=== PATIENT | female | born 1975 | race Caucasian/White ===

== ENCOUNTER → 2017-03-08 | Outpatient (CLI) | payer BC ==
--- NOTE | 2017-03-08 14:32 | MM ---
Reason for exam: screening (asymptomatic). Last mammogram was performed 1 year and 1 month ago. History: Family history of breast cancer in maternal aunt at age 72. Benign US biopsy breast VAD RT of the right breast, July 29, 2015. Benign US biopsy breast add'l VAD RT of the right breast, July 29, 2015. Benign US biopsy breast add'l VAD RT of the right breast, July 29, 2015. Physical Findings: A clinical breast exam by your physician is recommended on an annual basis and results should be correlated with mammographic findings. MG 3D Screening Mammo W/Cad Bilateral CC and MLO view(s) were taken. Prior study comparison: February 18, 2016, bilateral MG diagnostic mammo w CAD [facility]. July 29, 2015, right breast MG diagnostic mammo RT wo CAD. The breast tissue is heterogeneously dense. This may lower the sensitivity of mammography. There is no discrete abnormality. No significant changes when compared with prior studies. ASSESSMENT: Negative, BI-RAD 1 RECOMMENDATION: Routine screening mammogram of both breasts in 1 year.
== END | disposition home or self-care (01) ==
LOC: RADMAMWWP 07:05
PROVIDERS: ATTEND Obstetrics & Gynecology
DX: Z12.31 Encounter for screening mammogram for malignant neoplasm of breast (principal)
CPT/HCPCS: 77063; G0202

== ENCOUNTER → 2018-04-10 | Outpatient (CLI) | payer BC ==
--- NOTE | 2018-04-11 12:27 | MM ---
Reason for exam: screening (asymptomatic). Last mammogram was performed 1 year and 1 month ago. History: Family history of breast cancer in maternal aunt at age 72. Benign US biopsy breast VAD RT of the right breast, July 29, 2015. Benign US biopsy breast add'l VAD RT of the right breast, July 29, 2015. Benign US biopsy breast add'l VAD RT of the right breast, July 29, 2015. Physical Findings: A clinical breast exam by your physician is recommended on an annual basis and results should be correlated with mammographic findings. MG 3D Screening Mammo W/Cad Bilateral CC and MLO view(s) were taken. Prior study comparison: March 08, 2017, bilateral MG 3d screening mammo w/cad. February 18, 2016, bilateral MG diagnostic mammo w CAD [facility]. The breast tissue is heterogeneously dense. This may lower the sensitivity of mammography. There is chronic nodularity bilaterally. There is no dominant lesion. ASSESSMENT: Benign, BI-RAD 2 RECOMMENDATION: Routine screening mammogram of both breasts in 1 year.
== END | disposition home or self-care (01) ==
LOC: RADMAMWWP 07:11
PROVIDERS: ATTEND Obstetrics & Gynecology
DX: Z12.31 Encounter for screening mammogram for malignant neoplasm of breast (principal)
CPT/HCPCS: 77063; 77067

== ENCOUNTER → 2019-04-17 | Outpatient (CLI) | payer BC ==
--- NOTE | 2019-04-18 14:08 | MM ---
Reason for exam: screening (asymptomatic). Last mammogram was performed 1 year ago. History: Family history of breast cancer in maternal aunt at age 72. Benign US biopsy breast VAD RT of the right breast, July 29, 2015. Benign US biopsy breast add'l VAD RT of the right breast, July 29, 2015. Benign US biopsy breast add'l VAD RT of the right breast, July 29, 2015. Physical Findings: A clinical breast exam by your physician is recommended on an annual basis and results should be correlated with mammographic findings. MG 3D Screening Mammo W/Cad Bilateral CC and MLO view(s) were taken. Prior study comparison: April 10, 2018, bilateral MG 3d screening mammo w/cad. March 08, 2017, bilateral MG 3d screening mammo w/cad. The breast tissue is heterogeneously dense. This may lower the sensitivity of mammography. No suspicious abnormality on the left breast. Right superior asymmetry at posterior depth. Multiple right biopsy markers noted. ASSESSMENT: Incomplete: need additional imaging evaluation, BI-RAD 0 RECOMMENDATION: Special view mammogram of the right breast. If lesion persists on supplemental views, image directed ultrasound is recommended. [facility] will attempt to contact patient to return for supplemental views and ultrasound if indicated.
== END | disposition home or self-care (01) ==
LOC: RADMAMWWP 06:52
PROVIDERS: ATTEND Family Medicine
DX: Z12.31 Encounter for screening mammogram for malignant neoplasm of breast (principal)
CPT/HCPCS: 77063; 77067

== ENCOUNTER → 2019-04-29 | Outpatient (CLI) | payer BC ==
--- NOTE | 2019-04-30 08:57 | MM ---
Reason for exam: additional evaluation requested from abnormal screening. Last mammogram was performed less than 1 month ago. History: Family history of breast cancer in maternal aunt at age 72. Benign US biopsy breast VAD RT of the right breast, July 29, 2015. Benign US biopsy breast add'l VAD RT of the right breast, July 29, 2015. Benign US biopsy breast add'l VAD RT of the right breast, July 29, 2015. Physical Findings: Nurse did not find any significant physical abnormalities on exam. MG 3D Work Up W/Cad RT Spot compression CC, spot compression MLO, and LM view(s) were taken of the right breast. Prior study comparison: April 17, 2019, bilateral MG 3d screening mammo w/cad. April 10, 2018, bilateral MG 3d screening mammo w/cad. The breast tissue is heterogeneously dense. This may lower the sensitivity of mammography. Previous mammotome biopsy in the right breast x 3. The posterior superior asymmetric density disperses on additional views. These results were verbally communicated with the patient and result sheet given to the patient on 04/29/19. ASSESSMENT: Negative, BI-RAD 1 RECOMMENDATION: Return to routine screening mammogram schedule for both breasts.
== END | disposition home or self-care (01) ==
LOC: RADMAMWWP 14:58
PROVIDERS: ATTEND Family Medicine
DX: R92.8 Other abnormal and inconclusive findings on diagnostic imaging of breast (principal)
CPT/HCPCS: 77061; 77065

== ENCOUNTER → 2020-05-08 | Outpatient (CLI) | payer BC ==
--- NOTE | 2020-05-11 10:38 | MM ---
Reason for exam: screening (asymptomatic). Last mammogram was performed 1 year ago. History: Family history of breast cancer in maternal aunt at age 72. Benign US biopsy breast VAD RT of the right breast, July 29, 2015. Benign US biopsy breast add'l VAD RT of the right breast, July 29, 2015. Benign US biopsy breast add'l VAD RT of the right breast, July 29, 2015. Physical Findings: A clinical breast exam by your physician is recommended on an annual basis and results should be correlated with mammographic findings. MG 3D Screening Mammo W/Cad Bilateral CC and MLO view(s) were taken. Prior study comparison: April 29, 2019, right breast MG 3d work up w/cad RT. April 17, 2019, bilateral MG 3d screening mammo w/cad. The breast tissue is heterogeneously dense. This may lower the sensitivity of mammography. Previous mammotome biopsy in the right breast x 3. There is no discrete abnormality. ASSESSMENT: Negative, BI-RAD 1 RECOMMENDATION: Routine screening mammogram of both breasts in 1 year.
== END | disposition home or self-care (01) ==
LOC: RADMAMWWP 07:09
PROVIDERS: ATTEND Obstetrics & Gynecology
DX: Z12.31 Encounter for screening mammogram for malignant neoplasm of breast (principal)
CPT/HCPCS: 77063; 77067

== ENCOUNTER → 2021-05-17 | Outpatient (CLI) | payer BC ==
--- NOTE | 2021-05-17 13:54 | MM ---
Reason for exam: screening (asymptomatic). Last mammogram was performed 1 year ago. History: Family history of breast cancer in maternal aunt at age 72. Benign US biopsy breast VAD RT of the right breast, July 29, 2015. Benign US biopsy breast add'l VAD RT of the right breast, July 29, 2015. Benign US biopsy breast add'l VAD RT of the right breast, July 29, 2015. Physical Findings: A clinical breast exam by your physician is recommended on an annual basis and results should be correlated with mammographic findings. MG 3D Screening Mammo W/Cad Bilateral CC and MLO view(s) were taken. Prior study comparison: May 08, 2020, bilateral MG 3d screening mammo w/cad. April 17, 2019, bilateral MG 3d screening mammo w/cad. The breast tissue is heterogeneously dense. This may lower the sensitivity of mammography. Finding: There are indeterminate regional calcifications in the upper outer quadrant of the left breast. Previous mammotome biopsy in the right breast x 3. New finding and increase in number of calcifications since May 08, 2020 and April 17, 2019. ASSESSMENT: Incomplete: need additional imaging evaluation, BI-RAD 0 RECOMMENDATION: Special view mammogram of the left breast. [facility] will attempt to contact patient to return for supplemental views.
== END | disposition home or self-care (01) ==
LOC: RADMAMWWP 07:18
PROVIDERS: ATTEND Family Medicine
DX: Z12.31 Encounter for screening mammogram for malignant neoplasm of breast (principal); Z80.3 Family history of malignant neoplasm of breast
CPT/HCPCS: 77063; 77067

== ENCOUNTER → 2021-05-19 | Outpatient (CLI) | payer BC ==
--- NOTE | 2021-05-20 11:45 | MM ---
Reason for exam: additional evaluation requested from abnormal screening. Last mammogram was performed less than 1 month ago. History: Family history of breast cancer in sister at age 64 and breast cancer in maternal aunt at age 72. Benign US biopsy breast VAD RT of the right breast, July 29, 2015. Benign US biopsy breast add'l VAD RT of the right breast, July 29, 2015. Benign US biopsy breast add'l VAD RT of the right breast, July 29, 2015. Physical Findings: Nurse did not find any significant physical abnormalities on exam. MG 3D Work Up W/Cad LT CC with magnification, LM with magnification, and LM view(s) were taken of the left breast. Prior study comparison: May 17, 2021, bilateral MG 3d screening mammo w/cad. The breast tissue is heterogeneously dense. This may lower the sensitivity of mammography. Finding: There are intermediate concern, suspicious, fine, grouped/clustered calcifications in the upper outer quadrant, middle position of the left breast 5cm from the nipple. New finding since May 17, 2021. These results were verbally communicated with the patient and result sheet given to the patient on 05/19/21. ASSESSMENT: Suspicious, BI-RAD 4 RECOMMENDATION: Stereotactic core biopsy of the left breast. Called Dr. Croft's office with mammographic findings and has scheduled an appointment for the patient for 06/24/21 at 10:[address] Finn. Biopsy scheduled for 07/01/21 at 8:00. PRELIMINARY REPORT CALLED AND FAXED TO DR. FINN ON 05/20/21.
== END | disposition home or self-care (01) ==
LOC: RADMAMWWP 07:02
PROVIDERS: ATTEND Family Medicine
DX: R92.1 Mammographic calcification found on diagnostic imaging of breast (principal); Z80.3 Family history of malignant neoplasm of breast
CPT/HCPCS: 77061; 77065

== ENCOUNTER 2021-06-07 12:14 | Day surgery (SDC) | payer BC ==
[2021-06-07 13:35] VITALS: RESP 18; TEMP 98.3
[2021-06-07 14:22] VITALS: PULSE 84
[2021-06-07 14:23] VITALS: BP 168/76
--- NOTE | 2021-06-07 15:37 | US ---
EXAMINATION TYPE: US FNA thyroid first lesion DATE OF EXAM: 06/07/2021 COMPARISON: NONE HISTORY: Thyroid nodule. Maximal barrier technique was utilized. After informed consent, skin overlying the taller than wide mid pole right lobe thyroid nodule was localized with ultrasound and the overlying skin prepped and d raped. Ultrasound was utilized using sterile technique. Lidocaine was used for local anesthesia. Fiv e passes with a 25-gauge needle were made into the nodule and aspirated specimen was submitted to cyt ology. Following the procedure hemostasis achieved. No immediate complication. The patient dischar ged in stable condition. IMPRESSION: STATUS POST ULTRASOUND GUIDED FINE NEEDLE ASPIRATION OF THYROID NODULE, PATHOLOGY IS PEND ING. THIS PROCEDURE WAS PERFORMED BY THE UNDERSIGNED.
== END 2021-06-07 14:05 | disposition home or self-care (01) ==
LOC: RADPROMAIN 12:14
PROVIDERS: ATTEND Family Medicine
DX: E04.1 Nontoxic single thyroid nodule (principal)
CPT/HCPCS: 10005; 88173; 88305

== ENCOUNTER → 2021-06-07 | Day surgery (SDC) | payer BC ==
[2021-06-07 07:18] VITALS: RESP 16
[2021-06-07 09:14] VITALS: BP 165/103; PULSE 71; TEMP 98.6
--- NOTE | 2021-06-07 13:33 | MM ---
Stereotactic Mammotome core biopsy left breast. HISTORY: Microcalcifications left breast The Microcalcifications in question within the left breast were targeted by the undersigned. Procedure was performed by the undersigned. Informed consent was obtained and all of the patients questions were answered. The standard sterile technique was utilized and appropriate local anesthesia was obtained with 1% lidocaine. Mammotome probe was advanced and multiple core samples were obtained and sent to pathology for interpretation. Microclip marker was deployed at the site of biopsy. Post procedural mammogram demonstrates appropriate deployment of radiopaque clip marker. The patient tolerated the procedure well and left the department in stable condition. Pathology results are pending. IMPRESSION: Successful stereotactic core biopsy left breast with pathology results pending. 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 Recommendation Follow up mammogram of the left breast in 6 months. BIN
== END ==
LOC: RADMAMWWP 07:00
PROVIDERS: ATTEND Surgery
DX: N60.12 Diffuse cystic mastopathy of left breast (principal); N62 Hypertrophy of breast; R92.8 Other abnormal and inconclusive findings on diagnostic imaging of breast
CPT/HCPCS: 88305; 19081; A4648; J2001

== ENCOUNTER → 2022-02-02 | Outpatient (CLI) | payer BC ==
--- NOTE | 2022-02-02 09:29 | MM ---
Reason for Exam: Follow-up at short interval from prior study. Last screening mammogram was performed 8 month(s) ago. Patient History: Menarche at age 13. First Full-Term at age 27. Patient used Hormonal Contraceptives for 10 years. 06/07/2021, Benign Core Biopsy on the left side. 07/29/2015, Benign Core Biopsy on the right side. 07/29/2015, Benign Core Biopsy on the right side. 07/29/2015, Benign Core Biopsy on the right side. Maternal aunt had breast cancer, age 72. Sister had breast cancer, age 64. Last menstrual period: 01/07/2022 Risk Values: Courtney 5 year model risk: 3.4%. NCI Lifetime model risk: 23.9%. Prior Study Comparison: 05/08/2020 Bilateral Screening Mammogram, [facility]. 05/17/2021 Bilateral Screening Mammogram, [facility]. 05/19/2021 Left Diagnostic Mammogram, [facility]. Tissue Density: Left: The breast tissue is heterogeneously dense. This may lower the sensitivity of mammography. Findings: Analyzed By CAD. Changes of prior stereotactic core biopsy left breast. No suspicious calcifications seen. No evidence for mass. Overall Assessment: Benign, BI-RAD 2 Management: Screening Mammogram of both breasts in 6 months. A clinical breast exam by your physician is recommended on an annual basis and results should be correlated with mammographic findings. This exam should not preclude additional follow-up of suspicious palpable abnormalities. Results were given to the patient verbally at the time of exam. Electronically signed and approved by: Archie Frank M.D. Radiologis
== END | disposition home or self-care (01) ==
LOC: RADMAMWWP 09:00
PROVIDERS: ATTEND Family Medicine
DX: R92.8 Other abnormal and inconclusive findings on diagnostic imaging of breast (principal); Z80.3 Family history of malignant neoplasm of breast
CPT/HCPCS: 77061; 77065

== ENCOUNTER → 2023-07-05 | Outpatient (CLI) | payer BC ==
[2023-07-05 11:04] LABS: Basophils # (A) 0.04 X 10*3/uL (0.00-0.10); Basophils % (A) 0.9 %; Eosinophils # (A) 0.11 X 10*3/uL (0.04-0.35); Eosinophils % (A) 2.5 %; HCT 43.4 % (37.2-46.3); HGB 14.5 g/dL (12.0-15.0); Lymphocytes % (A) 29.1 %; MCH 29.4 pg (27.0-32.0); MCHC 33.4 g/dL (32.0-37.0); Mean Platelet Volume 9.6 FL (9.5-12.2); Monocytes # (A) 0.44 X 10*3/uL (0.20-1.00); Monocytes % (A) 9.9 %; NRBC Per 100 WBC 0 X 10*3/uL (0.00-0.01); Neutrophils # (A) 2.56 X 10*3/uL (1.80-7.70); Neutrophils % (A) 57.4 %; Platelet Count 261 X 10*3/uL (140-440); RBC 4.93 X 10*6/uL (4.10-5.20); RDW 12.2 % (11.5-14.5); WBC 4.46 X 10*3/uL (4.50-10.00)
[2023-07-05 11:18] LABS: ALT 11 U/L (8-44); AST 18 U/L (13-35); Albumin 4.5 g/dL (3.8-4.9); Albumin/Globulin Ratio 2.14 Ratio (1.60-3.17); Alkaline Phosphatase 51 U/L (41-126); BUN/Creat Ratio 26.75 Ratio (12.00-20.00); Blood Urea Nitrogen 21.4 mg/dL (9.0-27.0); Calcium 9.1 mg/dL (8.7-10.3); Carbon Dioxide 24.2 mmol/L (21.6-31.8); Chloride 106 mmol/L (96-109); Chol/HDL Ratio 2.84 Ratio; Globulin 2.1 g/dL (1.6-3.3); Glucose 94 mg/dL (70-110); LDL Cholesterol,Calculated 79.7 mg/dL (0.0-131.0); Potassium 4.4 mmol/L (3.5-5.5); Sodium 142 mmol/L (135-145); Total Bilirubin 0.4 mg/dL (0.3-1.2); Total Protein 6.6 g/dL (6.2-8.2); VLDL Calculation 11.62 mg/dL (5.00-40.00)
== END | disposition home or self-care (01) ==
LOC: LABWHC1 06:58
PROVIDERS: ATTEND Family Medicine
DX: Z00.00 Encounter for general adult medical examination without abnormal findings (principal); I10 Essential (primary) hypertension
CPT/HCPCS: 36415; 80053; 80061; 84443; 85025

== ENCOUNTER → 2023-09-26 | Outpatient (CLI) | payer BC ==
--- NOTE | 2023-09-26 22:29 | MM ---
Reason for Exam: Screening (asymptomatic). Last screening mammogram was performed 12 month(s) ago. Patient History: Menarche at age 13. First Full-Term at age 27. Patient has history of breast feeding. Patient used Hormonal Contraceptives for 10 years. 06/07/2021, Benign Core Biopsy on the left side. 07/29/2015, Benign Core Biopsy on the right side. 07/29/2015, Benign Core Biopsy on the right side. 07/29/2015, Benign Core Biopsy on the right side. Maternal aunt had breast cancer, age 72. Sister had breast cancer, age 64. Risk Values: Courtney 5 year model risk: 2.9%. NCI Lifetime model risk: 22.8%. Prior Study Comparison: 05/19/2021 Left Diagnostic Mammogram, [facility]. 02/02/2022 Left MG 3D diag mammo w/cad LT, [facility]. 09/22/2022 Bilateral MG 3D screening mammo w/cad, [facility]. Tissue Density: The breast tissue is heterogeneously dense. This may lower the sensitivity of mammography. Findings: Analyzed By CAD. 3 microclips on the right and one on the left. Central outer asymmetric density posterior right cc view has become more defined and incompletely disperses on 3D images. This may represent superimposition shadow but further evaluation is recommended. Otherwise, no significant change. Overall Assessment: Incomplete: need additional imaging evaluation, BI-RAD 0 Management: Special View Mammogram of the right breast. Diagnostic Breast Ultrasound of the right breast. Additional views to include spot 3-D CC, 3-D CC rolled, and 3-D lateral views. Subsequent whole right breast ultrasound given increased breast density as well as patient's increased lifetime risk score. [facility] will attempt to contact patient to return for supplemental views and ultrasound if indicated. Electronically signed and approved by: Valery Cochran M.D. Radiologist
== END | disposition home or self-care (01) ==
LOC: RADMAMWWP 06:57
PROVIDERS: ATTEND Family Medicine
DX: Z12.31 Encounter for screening mammogram for malignant neoplasm of breast (principal); Z80.3 Family history of malignant neoplasm of breast; Z92.0 Personal history of contraception
CPT/HCPCS: 77063; 77067

== ENCOUNTER → 2023-10-04 | Outpatient (CLI) | payer BC ==
--- NOTE | 2023-10-04 07:41 | MM ---
Reason for Exam: Additional evaluation requested from abnormal screening. Last screening mammogram was performed less than 1 month ago. Patient History: Menarche at age 13. First Full-Term at age 27. Patient has history of breast feeding. Patient used Hormonal Contraceptives for 10 years. 06/07/2021, Benign Core Biopsy on the left side. 07/29/2015, Benign Core Biopsy on the right side. 07/29/2015, Benign Core Biopsy on the right side. 07/29/2015, Benign Core Biopsy on the right side. Maternal aunt had breast cancer, age 72. Sister had breast cancer, age 64. Risk Values: Courtney 5 year model risk: 2.9%. NCI Lifetime model risk: 22.8%. Prior Study Comparison: 07/29/2015 Right Diagnostic Mammogram, [facility]. 02/18/2016 Bilateral Diagnostic Mammogram, [facility]. 02/18/2016 Right Diagnostic Ultrasound, [facility]. 03/08/2017 Bilateral Screening Mammogram, [facility]. 04/10/2018 Bilateral Screening Mammogram, [facility]. 04/17/2019 Bilateral Screening Mammogram, [facility]. 04/29/2019 Right Diagnostic Mammogram, [facility]. 05/08/2020 Bilateral Screening Mammogram, [facility]. 05/17/2021 Bilateral Screening Mammogram, [facility]. 05/19/2021 Left Diagnostic Mammogram, [facility]. 02/02/2022 Left MG 3D diag mammo w/cad LT, [facility]. 09/22/2022 Bilateral MG 3D screening mammo w/cad, [facility]. 09/26/2023 Bilateral MG 3D screening mammo w/cad, [facility]. Tissue Density: Right: The breast tissue is heterogeneously dense. This may lower the sensitivity of mammography. Findings: Analyzed By CAD. The questioned posterior depth central outer asymmetric density on the CC view appears to disperse on additional views suggesting superimposition shadow. However, a 9 mm area of nodular focal asymmetry becomes more apparent posterior upper outer quadrant for record or ultrasound evaluation is recommended. 3 microclips right breast from prior biopsies. Overall Assessment: Incomplete: need additional imaging evaluation, BI-RAD 0 Management: Diagnostic Breast Ultrasound of the right breast. Electronically signed and approved by: Valery Cochran M.D. Radiologist
--- NOTE | 2023-10-04 09:26 | USB ---
Reason for Exam: Additional evaluation requested from prior study. Patient History: Menarche at age 13. First Full-Term at age 27. Patient has history of breast feeding. Patient used Hormonal Contraceptives for 10 years. 06/07/2021, Benign Core Biopsy on the left side. 07/29/2015, Benign Core Biopsy on the right side. 07/29/2015, Benign Core Biopsy on the right side. 07/29/2015, Benign Core Biopsy on the right side. Maternal aunt had breast cancer, age 72. Sister had breast cancer, age 64. Risk Values: Courtney 5 year model risk: 2.9%. NCI Lifetime model risk: 22.8%. Technique: Method: Whole Breast Handheld. Prior Study Comparison: 07/16/2015 Right Diagnostic Ultrasound, [facility]. 02/18/2016 Right Diagnostic Ultrasound, [facility]. 02/02/2022 Left MG 3D diag mammo w/cad LT, [facility]. 09/22/2022 Bilateral MG 3D screening mammo w/cad, [facility]. 09/26/2023 Bilateral MG 3D screening mammo w/cad, [facility]. Findings: The whole breast of the right breast, the axilla of the right breast and the retroareolar of the right breast were scanned. A complete US of all four quadrants of the breast common axilla, and retro-areolar region were reviewed. * At the 10:00 position, 5 cm from the nipple, there is a benign 9 mm cyst, likely mammographic correlate. * Just adjacent at 11:00, there is a benign cyst cluster measuring 7 mm. * Dense tissue is present throughout. * No other solid or cystic lesion or axillary adenopathy. Overall Assessment: Probably benign, BI-RAD 3 Management: Diagnostic Mammogram of the right breast. A clinical breast exam by your physician is recommended on an annual basis and results should be correlated with mammographic findings. This exam should not preclude additional follow-up of suspicious palpable abnormalities. Results were given to the patient verbally at the time of exam. Note on Courtney scores and lifetime risk: 1. A Courtney score greater than 3% is considered moderate risk. If this is the case, consider specialist referral to assess eligibility for a risk reducing agent. 2. If overall lifetime risk for the development of breast cancer is 20% or higher, the patient may qualify for future screening with alternating mammogram and breast MRI. Electronically signed and approved by: Valery Cochran M.D. Radiologist
== END | disposition home or self-care (01) ==
LOC: RADMAMWWP 06:55
PROVIDERS: ATTEND Family Medicine
DX: R92.331 Mammographic heterogeneous density, right breast (principal); Z80.3 Family history of malignant neoplasm of breast
CPT/HCPCS: 77061; 77065

== ENCOUNTER → 2024-05-17 | Outpatient (CLI) | payer BC ==
--- NOTE | 2024-05-17 07:45 | MM ---
Reason for Exam: Follow-up at short interval from prior study. Last screening mammogram was performed 8 month(s) ago. Patient History: Menarche at age 13. First Full-Term at age 27. Patient has history of breast feeding. Patient used Hormonal Contraceptives for 10 years. 06/07/2021, Benign Core Biopsy on the left side. 07/29/2015, Benign Core Biopsy on the right side. 07/29/2015, Benign Core Biopsy on the right side. 07/29/2015, Benign Core Biopsy on the right side. Maternal aunt had breast cancer, age 72. Sister had breast cancer, age 64. Risk Values: Courtney 5 year model risk: 2.6%. NCI Lifetime model risk: 22.3%. Prior Study Comparison: 09/22/2022 Bilateral MG 3D screening mammo w/cad, [facility]. 09/26/2023 Bilateral MG 3D screening mammo w/cad, [facility]. 10/04/2023 Right MG 3D work up w/cad RT, [facility]. Tissue Density: Right: The breasts are heterogeneously dense, which may obscure small masses. Findings: Analyzed By CAD. There is chronic nodularity again noted without evidence for suspicious mass. Microclip marker as are identified from prior biopsies. No suspicious calcifications right breast. Overall Assessment: Benign, BI-RAD 2 Management: Screening Mammogram of both breasts in 4 months. . Results were given to the patient verbally at the time of exam. Patient should continue monthly self-breast exams. A clinical breast exam by your physician is recommended on an annual basis. This exam should not preclude additional follow-up of suspicious palpable abnormalities. Note on Courtney scores and lifetime risk: 1. A Courtney score greater than 3% is considered moderate risk. If this is the case, consider specialist referral to assess eligibility for a risk reducing agent. 2. If overall lifetime risk for the development of breast cancer is 20% or higher, the patient may qualify for future screening with alternating mammogram and breast MRI. [facility], , 05/17/2024 7:42 AM. Electronically signed and approved by: Archie Frank M.D. Radiologis
== END | disposition home or self-care (01) ==
LOC: RADMAMWWP 06:58
PROVIDERS: ATTEND Family Medicine
DX: N60.01 Solitary cyst of right breast
CPT/HCPCS: 77061; 77065

== ENCOUNTER → 2024-10-16 | Outpatient (CLI) | payer BC ==
--- NOTE | 2024-10-16 09:00 | MM ---
Reason for Exam: Screening (asymptomatic). Last mammogram was performed 1 year(s) and 1 month(s) ago. Patient History: Menarche at age 13. First Full-Term at age 27. Patient has history of breast feeding. Patient used Hormonal Contraceptives for 10 years. 06/07/2021, Benign Core Biopsy on the left side. 07/29/2015, Benign Core Biopsy on the right side. 07/29/2015, Benign Core Biopsy on the right side. 07/29/2015, Benign Core Biopsy on the right side. Maternal aunt had breast cancer, age 72. Sister had breast cancer, age 64. Risk Values: Courtney 5 year model risk: 2.6%. NCI Lifetime model risk: 22.3%. Prior Study Comparison: 09/26/2023 Bilateral MG 3D screening mammo w/cad, [facility]. 10/04/2023 Right MG 3D work up w/cad RT, [facility]. 05/17/2024 Right MG 3D diag mammo w/cad RT, [facility]. Tissue Density: The breasts are heterogeneously dense, which may obscure small masses. Findings: Analyzed By CAD. Bilateral areas of asymmetric density are unchanged. 3 microclips in the right breast and one microclip in the left breast from prior biopsies. There is no suspicious group of microcalcifications or new suspicious mass in either breast. Overall Assessment: Benign, BI-RAD 2 Management: Screening Mammogram of both breasts in 1 year. SEE NOTE BELOW IN REGARDS TO THE PATIENT'S INCREASED LIFETIME RISK SCORE. Patient should continue monthly self-breast exams. A clinical breast exam by your physician is recommended on an annual basis. This exam should not preclude additional follow-up of suspicious palpable abnormalities. Note on Courtney scores and lifetime risk: 1. A Courtney score greater than 3% is considered moderate risk. If this is the case, consider specialist referral to assess eligibility for a risk reducing agent. 2. If overall lifetime risk for the development of breast cancer is 20% or higher, the patient may qualify for future screening with alternating mammogram and breast MRI. [facility], , 10/16/2024 8:57 AM. Electronically signed and approved by: Valery Cochran M.D. Radiologist
== END | disposition home or self-care (01) ==
LOC: RADMAMWWP 07:05
PROVIDERS: ATTEND Family Medicine
DX: Z12.31 Encounter for screening mammogram for malignant neoplasm of breast (principal); R92.333 Mammographic heterogeneous density, bilateral breasts; Z92.0 Personal history of contraception; Z80.3 Family history of malignant neoplasm of breast
CPT/HCPCS: 77063; 77067